=== PATIENT | female | born 1975 | race Caucasian/White ===

== ENCOUNTER 2017-12-12 11:26 | Emergency (ER) | payer MEDICARE, MEDICAID ==
--- NOTE | 2017-12-12 11:43 | EDM.PDOC ---
ED HPI GENERAL MEDICAL PROBLEM - General Stated Complaint: HIGH HEART RATE/ LIGHT HEADED/ DIZZY Time Seen by Provider: 12/12/17 11:42 Source of Information: Reports: Patient, Provider History Limitations: Reports: No Limitations - History of Present Illness INITIAL COMMENTS - FREE TEXT/NARRATIVE: 42-year-old female comes over from the clinic after developing lightheadedness, palpitations and malaise. She went into the clinic and she appeared very pale, they had difficulty getting a blood pressure and pulse on her so they put her on a alarm security or surveillance monitor and she was in a tachycardia. EKG was done which showed a wide complex tachycardia at a rate of 200 so they sent her over the emergency room.She's had no chest pain. She denies shortness of breath. On arrival her pulse was irregular but the rate was under 100. She was placed on a alarm security or surveillance monitor and was in atrial fibrillation, with a left bundle branch block. She continued to have no symptoms. She was hypotensive. She was given 324 mg of aspirin chewable and an IV was started in the left arm. Until symptoms developed this morning roughly 4 hours ago, she has had no recent illness, fevers or chills, nausea and vomiting or diarrhea. No recent medication changes and no cardiac history. She is a nonsmoker. Onset: Sudden Severity: Moderate Associated Symptoms: Reports: Diaphoresis, Malaise, Weakness. Denies: Chest Pain, Fever/Chills, Nausea/Vomiting, Shortness of Breath - Related Data Allergies Allergy/AdvReac Type Severity Reaction Status Date / Time No Known Allergies Allergy Verified 12/12/17 11:57 Home Meds: Home Meds levETIRAcetam [Levetiracetam] 750 mg PO BID 03/31/13 [History] Lisinopril 40 mg PO DAILY 09/20/17 [History] Paliperidone Palmitate [Invega Sustenna] 117 mg IM Q30D 09/20/17 [History] Venlafaxine HCl [Venlafaxine HCl ER] 150 mg PO DAILY 09/20/17 [History] hydroCHLOROthiazide [Hydrochlorothiazide] 12.5 mg PO DAILY 09/20/17 [History] levETIRAcetam [Keppra] 750 mg PO BID 12/12/17 [History] ED ROS GENERAL - Review of Systems Review Of Systems: See Below Constitutional: Reports: Malaise, Weakness, Diaphoresis. Denies: Fever, Chills Respiratory: Denies: Shortness of Breath Cardiovascular: Reports: Palpitations. Denies: Chest Pain GI/Abdominal: Denies: Abdominal Pain, Nausea, Vomiting : Reports: No Symptoms Skin: Reports: Pallor, Diaphoresis Neurological: Reports: Other (Lightheaded, near syncope) Psychiatric: Reports: Hallucinations (Has a chronic history of schizophrenia, hallucinations) ED EXAM, GENERAL - Physical Exam Exam: See Below Exam Limited By: No Limitations General Appearance: Alert, No Apparent Distress Eye Exam: Bilateral Eye: Normal Inspection Head: Atraumatic Respiratory/Chest: No Respiratory Distress, Lungs Clear Cardiovascular: Irregularly Irregular GI/Abdominal: Soft, Non-Tender Extremities: No: Pedal Edema Neurological: Alert, Oriented Psychiatric: Flat Affect Skin Exam: Warm, Dry, Pallor EKG INTERPRETATION Rhythm: A-Fib QRS: LBBB Course - Vital Signs Last Recorded V/S: Last Vital Signs Temp 96.8 F 12/12/17 11:47 Pulse 79 12/12/17 12:50 Resp 12 12/12/17 12:50 BP 101/63 12/12/17 12:50 Pulse Ox 99 12/12/17 12:50 - Orders/Labs/Meds Orders: Active Orders 24 hr Category Date Time Status EKG Documentation Completion [RC] ASDIRECTED Care 12/12/17 11:51 Active EKG 12 Lead [EK] Routine Ther 12/12/17 11:51 Ordered Labs: Laboratory Tests 12/12/17 12/12/17 Range/Units 11:51 11:51 WBC 6.8 (4.5-11.0) K/uL RBC 4.25 (3.30-5.50) M/uL Hgb 12.2 (12.0-15.0) g/dL Hct 36.4 (36.0-48.0) % MCV 86 (80-98) fL MCH 29 (27-31) pg MCHC 34 (32-36) % Plt Count 370 (150-400) K/uL Neut % (Auto) 64 (36-66) % Lymph % (Auto) 28 (24-44) % [place] % (Auto) 7 H (2-6) % Eos % (Auto) 0 L (2-4) % Baso % (Auto) 0 (0-1) % Sodium 137 L (140-148) mmol/L Potassium 2.8 L* (3.6-5.2) mmol/L Chloride 101 (100-108) mmol/L Carbon Dioxide 23 (21-32) mmol/L Anion Gap 15.8 H (5.0-14.0) mmol/L BUN 11 (7-18) mg/dL Creatinine 1.3 H D (0.6-1.0) mg/dL Est Cr Clr Drug Dosing 50.73 mL/min Estimated GFR (MDRD) 45 L (>60) Glucose 126 H (74-106) mg/dL Calcium 8.5 (8.5-10.1) mg/dL Total Bilirubin 0.3 (0.2-1.0) mg/dL AST 16 (15-37) U/L ALT 14 (12-78) U/L Alkaline Phosphatase 107 (46-116) U/L Troponin I 0.136 H* (0.000-0.056) ng/mL Total Protein 6.6 (6.4-8.2) g/dL Albumin 2.8 L (3.4-5.0) g/dL Globulin 3.8 H (2.3-3.5) g/dL Albumin/Globulin Ratio 0.7 L (1.2-2.2) Meds: Medications Discontinued Medications Generic Name Dose Route Start Last Admin Trade Name Freq PRN Reason Stop Dose Admin Aspirin 324 mg 12/12/17 12:20 12/12/17 12:23 Aspirin PO 12/12/17 12:21 324 mg ONETIME ONE Administration Clopidogrel Bisulfate 600 mg 12/12/17 12:28 12/12/17 12:33 Plavix PO 12/12/17 12:29 600 mg ONETIME ONE Administration Heparin Sodium (Porcine) 4,000 units 12/12/17 12:39 12/12/17 12:45 Heparin Sodium IVPUSH 12/12/17 12:40 4,000 units ONETIME ONE Administration Sodium Chloride 1,000 mls @ 999 mls/hr 12/12/17 11:51 12/12/17 12:18 Normal Saline IV 12/12/17 12:51 999 mls/hr ONETIME ONE Administration Heparin Sodium/Dextrose 25,000 units in 500 mls @ 20 mls/hr 12/12/17 12:45 12:46 Heparin 25,000 Units In D5w 500 Ml IV 1,000 units/hr TITRATE ARIES 20 mls/hr Administration Protocol 1,000 UNITS/HR - Re-Assessments/Exams Free Text/Narrative Re-Assessment/Exam: 12/12/17 12:38 EKG was done which showed an atrial fibrillation, rate of 84 and a wide complex QRS likely left bundle branch block. 324 mg of chewable aspirin were given and an IV started. Previous EKG was found by her primary provider from 4 years ago and was "normal". She was hypotensive so given a bolus of 1 L of normal saline. CBC, BMP and troponin were obtained, CBC was normal but potassium was 2.8 and troponin was 0.13. At that time she converted into a sinus rhythm but continued to have a left bundle branch block but her blood pressure normalized. A consultation with cardiology was done, she was given Plavix and started on heparin and transfered to [place] for cardiology evaluation. 12/12/17 12:43 Patient converted spontaneously from atrial fibrillation to sinus rhythm. Another EKG confirmed a persistent left bundle branch block. Patient remained stable. Departure - Departure Time of Disposition: 13:04 Disposition: DC/Tfer to Other 70 Condition: Fair Clinical Impression: Acute SD Qualifiers: Myocardial infarction type: unspecified Involved coronary artery: other coronary artery Qualified Code(s): I21.29 - ST elevation (STEMI) myocardial infarction involving other sites - Discharge Information Referrals: PCP,None [Primary Care Provider] - Forms: ED Department Discharge Care Plan Goals: Patient was transferred by air for a urgent cardiology evaluation regarding acute SD. - My Orders Last 24 Hours: My Active Orders 12/12/17 11:51 EKG Documentation Completion [RC] ASDIRECTED EKG 12 Lead [EK] Routine - Assessment/Plan Last 24 Hours: My Active Orders 12/12/17 11:51 EKG Documentation Completion [RC] ASDIRECTED EKG 12 Lead [EK] Routine
[2017-12-12] MEDS ORDERED: Sodium Chloride 0.9% 1,000 ML IV ONE (11:51)
[2017-12-12] MEDS ORDERED: Aspirin 81 MG Tab.Chew PO ONE (12:20)
[2017-12-12] MEDS ORDERED: Clopidogrel 75 MG Tab PO ONE (12:28)
[2017-12-12] MEDS ORDERED: Heparin Sodium 5,000 Units/ML Vial IVPUSH ONE (12:39)
[2017-12-12] MEDS ORDERED: Heparin Sodium/D5W 25,000 UNITS/500 ML BAG IV SCH (12:45)
== END 2017-12-12 13:04 | disposition other institution (70) ==
LOC: JP.ED 11:26
DX: I21.29 ST elevation (STEMI) myocardial infarction involving other sites (principal); Z79.899 Other long term (current) drug therapy
CPT/HCPCS: 36415; 80053; 84484; 85025; 93005; 96361; 96365; 96375; 99283; A9270; J1644; J7030; 99285